=== PATIENT | female | born 1945 | race Caucasian/White ===

== ENCOUNTER → 2020-01-25 | Day surgery (SDC) | payer MEDICARE ==
[2020-01-21 14:45] LABS: BASOPHILS # (AUTO) 0.1 (0.0-0.1); BASOPHILS % 0.7 % (0.0-1.0); EOSINOPHILS # (AUTO) 0.3 (0.0-0.4); EOSINOPHILS % 3.4 % (0.0-6.0); HEMATOCRIT 39.7 % (34.2-44.1); LYMPHOCYTES # (AUTO) 2.6 (1.0-3.2); LYMPHOCYTES % 32.6 % (18.0-39.1); MEAN CORPUSCULAR HEMOGLOBIN 26.2 pg (28-32); MEAN CORPUSCULAR HGB CONC 30.2 g/dL (31-35); MEAN CORPUSCULAR VOLUME 86.7 fL (81-99); MONOCYTES # (AUTO) 0.5 (0.2-0.8); MONOCYTES % 6.6 % (4.4-11.3); NEUTROPHILS # (AUTO) 4.5 (2.1-6.9); NEUTROPHILS % 56.5 % (38.7-80.0); PLATELET COUNT 186 x10e3/uL (140-360); RED BLOOD COUNT 4.58 x10e6/uL (3.6-5.1); RED CELL DISTRIBUTION WIDTH 15.7 % (11.7-14.4)
[~2020-01-25] MED LIST: GABAPENTIN400 MG PO; HYOSCYAMINE 0.125 MG TAB ONE; LEVOTHYROXINE88 MCG PO
[2020-01-25 16:35] VITALS: BP 139/73
--- NOTE | 2020-01-25 17:33 | Operative Report ---
DATE OF PROCEDURE: 01/25/2020 SURGEON: Edu Jensen MD PROCEDURES: EGD with esophageal dilatation and biopsies and a colonoscopy. INDICATIONS FOR EGD: Dysphagia, heartburn, acid reflux. INDICATIONS FOR COLONOSCOPY: Colorectal cancer screening, family history of colon cancer, personal history of colon polyps. MEDICATIONS: The patient was done under MAC, please see anesthesiologist's note. PROCEDURE IN DETAIL: With the patient in the left lateral decubitus position, a flexible fiberoptic Olympus gastroscope was introduced into the esophagus under direct visualization without any difficulty. There was some patchy erythema noted in distal esophagus. The lower esophageal sphincter appeared incompetent. The scope was then advanced with ease into the stomach traversing a moderate-sized hiatal hernia. Mucosa overlying the antrum and the body revealed some patchy erythema and [id number] edema, and biopsies were obtained and sent to stain for H. pylori. Pylorus was of normal contour and shape, was intubated with ease and the scope was advanced all the way to the second portion of the duodenum. The scope was then withdrawn slowly. Mucosa overlying the proximal second portion and the duodenal bulb appeared to be within normal limits. The scope was then withdrawn back into the stomach and retroflexed, and mucosa overlying the fundus and the cardia and the proximal body could not be visualized, as the patient kept continuously belching out the insufflated air. The scope was then straightened out and it was subsequently withdrawn. Esophagus was then dilated to size 52-Grenadian Nagy. The patient tolerated the procedure well. IMPRESSION: 1. Distal esophagitis, mild. 2. Esophagus dilated to size 52-Grenadian Nagy. 3. Incompetent lower esophageal sphincter. 4. Moderate-sized hiatal hernia. 5. Gastritis, biopsied, biopsies sent to stain for Helicobacter pylori. 6. Fundus, cardia as well as the proximal body could not be visualized, as the patient kept belching out the insufflated air. PLAN: Follow up histology. Initiate Protonix 40 mg one p.o. q.a.m. before meals. The patient was then turned around and after adequate lubrication of the anal canal, a flexible fiberoptic Olympus colonoscope was inserted into the rectum with ease and advanced all the way to the cecum. The scope was then withdrawn slowly. Mucosa overlying the cecum, ascending colon, and transverse colon grossly appeared to be within normal limits. Diverticular disease was noted in the distal descending and the sigmoid colon. The rectum appeared to be within normal limits. The scope was then retroflexed into the distal rectum and small internal hemorrhoids were noted, none of which was actively bleeding. The scope was then straightened out, it was subsequently withdrawn, and the patient tolerated the procedure well. Of note, the colon was excessively spastic and irritable, and suboptimally visualized. IMPRESSION: 1. Colon excessively tortuous and spastic, suboptimally visualized. 2. Diverticulosis. 3. Internal hemorrhoids, none actively bleeding. PLAN: Initiate high-fiber, low-fat diet. Initiate high-fiber supplement. The patient might benefit from a followup colonoscopy in 3 years. Edu Jensen MD [facility] [place] /[id number] cc: Azul Vega
== END | disposition home or self-care (01) ==
LOC: OR 10:35
PROVIDERS: ATTEND Internal Medicine Gastroenterology
DX: K29.50 Unspecified chronic gastritis without bleeding (principal); K58.9 Irritable bowel syndrome, unspecified; K21.9 Gastro-esophageal reflux disease without esophagitis; K22.0 Achalasia of cardia; K20.90 Esophagitis, unspecified without bleeding; K57.30 Diverticulosis of large intestine without perforation or abscess without bleeding; K64.8 Other hemorrhoids; K44.9 Diaphragmatic hernia without obstruction or gangrene; R19.7 Diarrhea, unspecified; M32.9 Systemic lupus erythematosus, unspecified; R49.9 Unspecified voice and resonance disorder; R03.0 Elevated blood-pressure reading, without diagnosis of hypertension; Z88.6 Allergy status to analgesic agent; Z88.0 Allergy status to penicillin; Z01.810 Encounter for preprocedural cardiovascular examination; Z01.812 Encounter for preprocedural laboratory examination; Z20.828 Contact with and (suspected) exposure to other viral communicable diseases; Z68.33 Body mass index [BMI] 33.0-33.9, adult; Z86.19 Personal history of other infectious and parasitic diseases; Z80.0 Family history of malignant neoplasm of digestive organs
CPT/HCPCS: 36415; 43239; 43450; 45378; 85025; 88305; 88312; 93005; U0002

== ENCOUNTER → 2020-04-01 | Outpatient (CLI) | payer MEDICARE ==
[~2020-04-01] MED LIST changes: -HYOSCYAMINE 0.125 MG TAB ONE
== END ==
LOC: DX 09:31
PROVIDERS: ATTEND Surgery
DX: K21.9 Gastro-esophageal reflux disease without esophagitis (principal); K44.9 Diaphragmatic hernia without obstruction or gangrene; R13.10 Dysphagia, unspecified
CPT/HCPCS: 74246; U0002